=== PATIENT | female | born 1955 | race Caucasian/White ===

== ENCOUNTER 2017-07-05 22:57 | Emergency (ER) | payer MEDICARE, MEDICAID ==
[~2017-07-05] VITALS: Ht 167.6 cm; Wt 63.5 kg
[~2017-07-05 22:57] MED LIST: ATOR10TA PO; HYDR-548 PO; LISI-603 PO; OMEP20TA20 PO
--- NOTE | 2017-07-05 23:10 | NUR ---
PT BB RA; LOWER BACK PAIN, CHRONIC, DENIES TRAUMA. PT STATES HX OF CHRONIC BACK PAIN. PT AOX3 RR EVEN AND UNLABORED. NO SOB NOTED. NAD NOTED. NO NVD AT THIS TIME. PT GOWNED AND PLACED ON MONITOR WAITING FOR MD RAINEY.
[2017-07-06] MEDS ORDERED: ACETAMINOPHEN ES 500 MG TABLET ONE (00:28)
[2017-07-06] MEDS ORDERED: ACETAMINOPHEN 325 MG TABLET PO ONE (00:30)
--- NOTE | 2017-07-06 00:31 | NUR ---
PT MEDICATED ORDERED. PT APPEARS TO BE COMFORTABLE AND RESTING.
[2017-07-06 01:36] VITALS: BP 116/78
--- NOTE | 2017-07-06 01:36 | NUR ---
Patient discharged to home in stable condition. Written and verbal after care instructions given. Patient verbalizes understanding of instruction. ambulatory with a steady gait.
== END 2017-07-06 01:37 | disposition home or self-care (01) ==
LOC: ER 22:58
DX: M25.551 Pain in right hip (principal); M25.552 Pain in left hip; G89.4 Chronic pain syndrome; F41.9 Anxiety disorder, unspecified; F32.9 Major depressive disorder, single episode, unspecified; I10 Essential (primary) hypertension; Z88.2 Allergy status to sulfonamides
CPT/HCPCS: A4606; Z7610

== ENCOUNTER 2017-12-02 02:07 | Emergency (ER) | payer MEDICAID, MEDICARE ==
[~2017-12-02] VITALS: Ht 157.5 cm; Wt 59.0 kg
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
--- NOTE | 2017-12-02 02:36 | NUR ---
DR SCOTT AT BEDSIDE TO EVALUATE PATIENT.
--- NOTE | 2017-12-02 02:45 | NUR ---
PATIENT TAKEN TO RADIOLOGY.
[2017-12-02 03:26] LABS: BASOPHILS % (AUTO) 0.5 % (0.0-2.0); EOSINOPHILS # (AUTO) 0.1 /CMM (0.0-0.7); EOSINOPHILS % (AUTO) 2.2 % (0.0-6.0); HEMATOCRIT 37 % (33-45); HEMOGLOBIN 12.4 g/dL (11.5-14.8); LYMPHOCYTES # (AUTO) 2.6 /CMM (0.8-4.8); LYMPHOCYTES % (AUTO) 41.5 % (20.0-44.0); MEAN CORPUSCULAR HEMOGLOBIN 29 PG (26.0-33.0); MEAN CORPUSCULAR HGB CONC 34 g/dl (31.0-36.0); MEAN CORPUSCULAR VOLUME 85 fL (82-100); MONOCYTES # (AUTO) 0.5 /CMM (0.1-1.30); MONOCYTES % (AUTO) 8.4 % (2.0-12.0); NEUTROPHILS % (AUTO) 47.4 % (43.0-81.0); PLATELET COUNT (AUTO) 309 /CMM (150-450); RDW COEFFICIENT OF VARIATION 16.4 (11.5-15.0); RED BLOOD CELL COUNT(AUTO) 4.34 MIL/uL (4.0-5.2); WHITE BLOOD COUNT (AUTO) 6.4 K/uL (4.3-11.0)
[2017-12-02 03:36] LABS: CALCIUM, SERUM 9.4 mg/dL (8.5-10.1); CREATININE 0.7 mg/dL (0.6-1.3); POTASSIUM 3.1 mmol/L (3.5-5.1)
[2017-12-02 03:38] LABS: INR 0.97 (0.87-1.13)
[2017-12-02] MEDS ORDERED: POTASSIUM CHLORIDE 20 MEQ TAB.PRT.SR PO ONE ×2 (04:29→04:30)
--- NOTE | 2017-12-02 04:38 | NUR ---
IV removed. Catheter intact and site benign. Pressure and 4x4 applied to site. No bleeding noted.
--- NOTE | 2017-12-02 04:41 | NUR ---
Offered patient to stay in the hospital for a few more hours if she wants, however patient wants to leave. Patient discharged to home in stable condition. Written and verbal after care instructions given. Patient verbalizes understanding of instruction. Patient is ambulatory with steady gait. Nad on dc. vss.
[2017-12-02 04:43] VITALS: BP 125/74
== END 2017-12-02 04:45 | disposition home or self-care (01) ==
LOC: ER 02:09
DX: M54.9 Dorsalgia, unspecified (principal); M54.2 Cervicalgia; E87.6 Hypokalemia; F32.9 Major depressive disorder, single episode, unspecified; F41.0 Panic disorder [episodic paroxysmal anxiety]; G89.4 Chronic pain syndrome; R42 Dizziness and giddiness; R51 Headache; I10 Essential (primary) hypertension; M48.061 Spinal stenosis, lumbar region without neurogenic claudication; M51.36 Other intervertebral disc degeneration, lumbar region; Z88.2 Allergy status to sulfonamides; V49.49XA Driver injured in collision with other motor vehicles in traffic accident, initial encounter; Y93.89 Activity, other specified; Y92.89 Other specified places as the place of occurrence of the external cause; Y99.8 Other external cause status
CPT/HCPCS: 36415; 70450-TC; 72125-TC; 72128-TC; 72131-TC; 80048-TC; 82962-TC; 85025-TC; 85730-TC; A4606; Z7610

== ENCOUNTER 2017-12-02 09:42 | Emergency (ER) | payer MEDICAID, MEDICARE ==
[~2017-12-02] VITALS: Ht 157.5 cm; Wt 59.9 kg
[2017-12-02 09:42] VITALS: BP 125/79
[2017-12-02] MEDS ORDERED: IBUPROFEN 400 MG TABLET PO ONE (10:30)
[2017-12-02] MEDS ORDERED: IBUPROFEN 400 MG TABLET ONE (10:40)
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
--- NOTE | 2017-12-02 13:40 | NUR ---
Patient does not wish to proceed with medical care recommended by Jessee Wei. Patient given information related to possible complications, up to and including , which could occur as a result of leaving the hospital at this time. Patient verbalizes understanding of risks involved due to leaving against medical advice. Patient has signed AMA form.
== END 2017-12-02 13:44 | disposition left against medical advice (07) ==
LOC: ER 09:45 → UNDOADMIN 13:11 → GPS 13:11
DX: S80.01XA Contusion of right knee, initial encounter (principal); I10 Essential (primary) hypertension; G89.29 Other chronic pain; Z59.0 Homelessness; Z88.2 Allergy status to sulfonamides; Z79.899 Other long term (current) drug therapy; V49.9XXA Car occupant (driver) (passenger) injured in unspecified traffic accident, initial encounter; Y93.89 Activity, other specified; Y92.89 Other specified places as the place of occurrence of the external cause; Y99.8 Other external cause status
CPT/HCPCS: 73564; 99284; A4606; Z7610